=== PATIENT | male | born 1975 | race Caucasian/White ===

== ENCOUNTER 2018-02-20 14:54 | Emergency (ER) | payer SELFPAY ==
[2018-02-20 15:03] VITALS: BP 117/69
--- NOTE | 2018-02-20 15:36 | ER Document Report ---
HPI - HPI Pain Level: 3 Vertical Provider Document - INFECTION CONTROL TRAVEL OUTSIDE OF THE [place] IN LAST 30 DAYS: No Course - Re-evaluation Re-evalutation: 02/20/18 15:35 Visual acuity 20/40 the left eye and 20/30 right eye uncorrected. - Vital Signs Vital signs: Temp Pulse Resp BP Pulse Ox 99.6 F 66 16 117/69 97 02/20/18 15:02 02/20/18 15:02 02/20/18 15:02 02/20/18 15:02 02/20/18 15:02
[2018-02-20] MEDS ORDERED: TETRACAINE HCL 0.5% OPH SOLN 2 ML OS ONE (16:11)
[2018-02-20] MEDS ORDERED: DIPH/PERTUSS(ACELL)/TETANUS VAC/PF 0.5 ML SYR (>=10YO) IM ONE (16:12)
--- NOTE | 2018-02-20 16:12 | ER Document Report ---
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 He does not wear contacts or corrective lenses. There is a piece of embedded plastic at 9:00 TRAVEL OUTSIDE OF THE [place] IN LAST 30 DAYS: No - Related Data Allergies/Adverse Reactions: No Known Allergies Allergy (Verified 02/20/18 14:57) Physical Exam - Vital signs Vitals: Temp Pulse Resp BP Pulse Ox 99.6 F 66 16 117/69 97 02/20/18 15:02 02/20/18 15:02 02/20/18 15:02 02/20/18 15:02 02/20/18 15:02 Course - Vital Signs Vital signs: Temp Pulse Resp BP Pulse Ox 99.6 F 66 16 117/69 97 02/20/18 15:02 02/20/18 15:02 02/20/18 15:02 02/20/18 15:02 02/20/18 15:02
--- NOTE | 2018-02-20 17:48 | ER Document Report ---
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 IN LAST 30 DAYS: No - HPI Patient complains to provider of: FB Onset: Other - 4 days ago Eye location: Left Injury: Yes Notes: Patient is here with complaints of foreign body in the left eye. He states that he was at work fixing a nail gun. When he tested it, air blue and a piece of something blew into his left eye. He continues to have pain there. No fever. He denies any significant loss vision. No nausea, vomiting, diarrhea. Unsure of last tetanus. No chest pain or shortness of breath. No other injuries or complaints at this time. - Related Data Allergies/Adverse Reactions: No Known Allergies Allergy (Verified 02/20/18 14:57) Past Medical History - General Information source: Patient - Social History Smoking Status: Unknown if Ever Smoked Family History: Reviewed & Not Pertinent Patient has suicidal ideation: No Patient has homicidal ideation: No Renal/ Medical History: Denies: Hx Peritoneal Dialysis Review of Systems - Review of Systems -: Yes All other systems reviewed and negative Physical Exam - Vital signs Vitals: Temp Pulse Resp BP Pulse Ox 99.6 F 66 16 117/69 97 02/20/18 15:02 02/20/18 15:02 02/20/18 15:02 02/20/18 15:02 02/20/18 15:02 - Notes Notes: GENERAL: alert, cooperative, nontoxic, no distress. HEAD: normocephalic, atraumatic EYES: Mild conjunctival injection. Pupils equal round react light bilaterally. No periorbital redness or swelling. Foreign body noted at approximately 9:00 on the left cornea. This appears to be superficial. This was able to be removed with a cotton tipped applicator. Slit-lamp exam shows a superficial abrasion with no retained foreign body, no rust ring. Anterior chamber is unremarkable. No dendritic lesions. EARS: no external swelling, no external redness NOSE: atraumatic, no external swelling MOUTH/THROAT: mucous membranes moist and pink NECK: soft, supple, full range of motion, no meningismus. CHEST: no distress, lungs clear and equal throughout. No wheezing, rales, rhonchi. CARDIAC: regular rate and rhythm, no murmur, normal capillary refill, normal pulses. BACK: full range of motion, no CVA tenderness. EXTREMITIES: full range of motion of all extremities. No redness, no swelling. NEURO: alert and oriented 3, no focal deficits, full range of motion of all extremities. PYSCH: appropriate mood, affect. Patient is cooperative. SKIN: pink, warm, dry, no rash. - HEENT Visual acuity- Right eye: 20/30 Visual acuity- Left eye: 20/40 Corrective lenses worn: No Course - Re-evaluation Re-evalutation: 02/20/18 17:54 Patient is nontoxic-appearing with stable vitals. The patient is here with complaints of foreign body in the left eye. He was repairing a nail gun when he tested it air blew something out of it and it caused a foreign body to go into his left eye. He is noted to have a superficial small foreign body in the left cornea. This is not a deep foreign body. I was able to easily remove the foreign body with the cotton-tipped applicator. Tetanus was updated. Visual acuity is unremarkable. This point the patient will be discharged home with a prescription for Polytrim and a referral to ophthalmology. He should follow-up with ophthalmology if he is not improving in the next 2 days, follow-up sooner for worsening pain, fever, blurred or loss vision, or for any further concerns. The patient's emergency department workup and current diagnosis were explained to the patient and or family. Follow-up instructions were provided. Medications if prescribed were discussed. Instructions for when to return to the emergency department including specific worrisome symptoms were discussed with the patient and/or family. - Vital Signs Vital signs: Temp Pulse Resp BP Pulse Ox 99.6 F 66 16 117/69 97 02/20/18 15:02 02/20/18 15:02 02/20/18 15:02 02/20/18 15:02 02/20/18 15:02 Procedures - Additional Procedures Foreign body removal Additional Procedures: Other - Small foreign body removed from the left cornea using cotton-tipped applicator. Complete foreign body was removed. No retained foreign body or rust ring. Patient tolerated procedure well with no immediate complications. Discharge - Discharge Clinical Impression: Foreign body of left cornea Qualifiers: Encounter type: initial encounter Qualified Code(s): T15.02XA - Foreign body in cornea, left eye, initial encounter Condition: Stable Disposition: HOME, SELF-CARE Instructions: Antibiotic Therapy ([facility]), Corneal Foreign Body ([facility]), Eyedrop Use ([facility]) Additional Instructions: His medication as prescribed. Follow-up with the eye doctor if not better in 2- 3 days, sooner for worsening symptoms, high fever, persistent vomiting, blurred or loss vision, or for any further concerns. Prescriptions: Polymyxin B Sulfate/Tmp [Polytrim Oph Soln 10 ml] 2 drop OP Q6H #1 bottle Forms: Smoking Cessation Education Referrals: APARNA JOHNSON DO [ACTIVE STAFF] - Follow up as needed Print Language: Citizen Of [place]
== END 2018-02-20 18:11 | disposition home or self-care (01) ==
LOC: ER 14:54
PROC: 08C9XZZ Extirpation of Matter from Left Cornea, External Approach (ICD-10-PCS; principal; 2018-02-20)
DX: T15.02XA Foreign body in cornea, left eye, initial encounter (principal); Z23 Encounter for immunization; Y08.89XA Assault by other specified means, initial encounter; Y99.0 Civilian activity done for income or pay
CPT/HCPCS: 90715; 99283